=== PATIENT | male | born 1930 | race Caucasian/White ===

== ENCOUNTER → 2018-11-14 | Outpatient (CLI) | payer OTHER ==
[~2018-11-14] VITALS: Ht 182.9 cm; Wt 66.7 kg
[2018-11-14] VITALS (10 sets, daily range): BP systolic 93–133; BP diastolic 36–64
[~2018-11-14] MED LIST: ADULT LOW DOSE81 MG OR; ALTACE5 M1 OR; CARDIZEM CD120 MG PO; CO Q-1010 MG OR; ELIQUIS2.5 MG PO; FISHOIL OR; FLECAINIDE ACET50 M1 PO; IMDUR 30 MG TAB30 M1 PO; MAGOX 400400 MG PO; MULTIVITAMINS OR; NITROGLYCERIN0.4 MG SUBLING; OCUVITE TABLET1 EAC1 PO; TRICOR145 MG OR; VITAMIN E400 UNIT OR; VITAMINC500 OR; ZETIA10 MG OR
[2018-11-14 10:08] LABS: HEMATOCRIT 31.4 % (42.0-52.0); HEMOGLOBIN 10.2 gm/dL (14.0-18.0); MCH 34.1 pg (26.0-34.0); MCHC 32.5 g/dL (28.0-37.0); MCV 104.7 fL (80.0-100.0); MPV 7.3 fl. (7.2-11.1); WBC 39.4 thou/uL (4.0-11.0)
[2018-11-14 10:20] LABS: ANION GAP 9 mmol/L (7-16); BUN 39 mg/dL (7-18); CALCIUM 9.5 mg/dL (8.5-10.1); CHLORIDE 103 mmol/L (98-107); CO2 28 mmol/L (21-32); CREATININE 1.6 mg/dL (0.6-1.3); GLUCOSE 95 mg/dL (70-99); POTASSIUM 4.3 mmol/L (3.5-5.1); SODIUM 140 mmol/L (136-145)
[2018-11-14 10:25] LABS: CHOLESTEROL 226 mg/dL (<200); HDL CHOLESTEROL 43 mg/dL (>40); LDL CHOLESTEROL 167 mg/dL (<100); TC:HDL 5.3 Ratio (Not establshd); TRIGLYCERIDE 80 mg/dL (<150); VLDL 16 mg/dL (<40)
[2018-11-14 10:31] LABS: APTT 25.5 Seconds (25.0-31.3); INR 1.1; PROTIME 10.8 Seconds (9.20-11.50)
[2018-11-14 10:32] LABS: SERUM ASSESSMENT Clear
--- NOTE | 2018-11-14 10:52 | EKG ---
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1930 Requested By: Giancarlo Russell Order Number: [id number] Reading MD: Giancarlo Russell Measurements Intervals [place] Rate: 67 P: MD: QRS: -25 QRSD: 108 T: 64 QT: 433 QTc: 457 Interpretive Statements Atrial flutter 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
--- NOTE | 2018-11-14 12:40 | CARD ---
[address] [address] CARDIAC CATH REPORT Name: YAYA MCPHERSON Room: [place] [address] ADM IN M.R.#: [id number] Admission: 11/14/18 Attend Phys: Giancarlo Russell MD, Discharge: Date of : 12/06/30 Report #: [id number] THIS REPORT FOR: //name// APPROVED REPORT Study performed: 11/14/2018 10:27:46 Patient Details The patient is a 87 year-old male Event Personnel Giancarlo Russell Counter Supervisor, Natalia Ty RN Perl Developer, Skyler Schwartz (R) Monitor, Urban Youssef AMUSEMENT EQUIPMENT OPERATOR Scrub Procedures Performed Art Access - R femoral artery* Coronaries Angiography and Bypass Grafts [id number] [facility] Indication Chest pain Risk Factors Hypercholesterolemia Previous Procedures/Diagnoses Previous CABG Procedure Narrative The patient was brought electively to the Cardiac Catheterization Laboratory and was prepped and draped in a sterile manner. The right femoral was infiltrated with 2% Lidocaine subcutaneous anesthesia. A [place] 6 FR sheath was inserted into the right femoral artery. Coronary angiography was performed using coronary diagnostic catheters. The right coronary system was accessed and visualized with a Diagnostic catheter. The left coronary system was accessed and visualized with a Diagnostic catheter. The left ventricle was accessed and visualized with a Diagnostic catheter. Pre-demployment femoral angiogram was performed . Closure device was deployed with a Fr Mynx 6Fr/7Fr. The patient tolerated the procedure well and there were no complications associated with the procedure. There was no hematoma. Intraoperative Conscious Sedation Sedation start time: 105 Case end Time: 112 [place] [address] CARDIAC CATH REPORT Name: YAYA MCPHERSON Room: [address] IN .R.#: [id number] Admission: 11/14/18 Attend Phys: Giancarlo Russell MD, Discharge: Date of : 12/06/30 Report #: [id number] Fentanyl 25 mcg Versed 1 mg Fluoro Time: 7.3 minutes Dose: 785.48 mGy Contrast Type and Amount: Visipaque 100 ml Coronary Angiography The patient's coronary anatomy is co- dominant. [place] Artery Percent Stenosis #1 priority patent saphenous vein graft to a diagonal branch of the LAD, marginal branch the circumflex in 2 distal posterolateral branches of the distal circumflex #2 atretic but patent CAMPBELL graft to the LAD Diagnostic Cath Left Main 10% distal narrowing LAD 30 Percent proximal and mid vessel narrowing with retrograde filling of a very small CAMPBELL graft Circumflex 100% mid vessel occlusion Right Coronary 30 Percent proximal mid and distal narrowing Left Ventriculography Left Ventriculography was not performed. Hemodynamics The aortic pressure is 101/44 mmHg with a mean of 64 mmHg. Conclusion #1 significant coronary artery disease characterized by the following: A 10% distal left main coronary artery narrowing B 30% proximal and mid LAD narrowing C total occlusion in the midportion of the circumflex D 30% proximal mid and distal right coronary narrowing #2 widely patent saphenous vein graft to a diagonal branch of the LAD marginal branch of the circumflex and two posterolateral branches of the distal circumflex #3 atretic but patent [place] [address] CARDIAC CATH REPORT Name: YAYA MCPHERSON Room: [address] IN .R.#: [id number] Admission: 11/14/18 Attend Phys: Giancarlo Russell MD, Discharge: Date of : 12/06/30 Report #: [id number] #4 normal systemic pressure throughout the study #5 atrial flutter with a moderate ventricular response throughout the study Recommendations Cardiac Risk Reduction Program Aggressive Medical Therapy Diagnostic Cath Approved by: Giancarlo Russell MD Date/Time: 11/14/2018 12:37:06 <ELECTRONICALLY SIGNED> By: Giancarlo Russell MD, FAC 11/14/18 1240 1240 1240Giancarlo Russell MD, FACC /INF
--- NOTE | 2018-11-14 14:57 | 2DMMODE ---
[place] [address] 2 D/M-MODE ECHOCARDIOGRAM Name: YAYA MCPHERSON Room: [facility]#: [id number] Admission: 11/14/18 Attend Phys: Jasmina Smiley Discharge: Date of : 12/06/30 Date of Service: 11/14/18 1456 Report #: [id number] THIS REPORT FOR: //name// APPROVED REPORT Study performed: 11/14/2018 12:54:09 EXAM: Comprehensive 2D, Doppler, and color-flow Echocardiogram Patient Location: Out-Patient Status: routine BSA: 1.87 HR: 69 bpm BP: 113/63 mmHg Rhythm: Atrial Flutter Other Information Study Quality: Good Indications Atrial Fibrillation CAD 2D Dimensions IVSd: 9.06 (7-11mm) LVOT Diam: 20.82 (18-24mm) LVDd: 32.37 mm PWd: 10.29 (7-11mm) Ascending Ao: 30.66 (22-36mm) LVDs: 20.32 (25-40mm) Aortic Root: 31.80 mm Volumes Left Atrial Volume (Systole) LA ESV Index: 40.40 mL/m2 Aortic Valve AoV Peak Chuy.: 1.86 m/s AO Peak Gr.: 13.81 mmHg LVOT Max P.19 mmHg AO Mean Gr.: 7.83 mmHg LVOT Mean P.96 mmHg LVOT Max V: 1.02 m/s AO V2 VTI: 39.60 cm LVOT Mean V: 0.64 m/s JAYLIN (VTI): 1.98 cm2 LVOT V1 VTI: 22.[address] [place]: 1.22 m/s2 AI PHT: 811.63 [place] [address] 2 D/M-MODE ECHOCARDIOGRAM Name: YAYA MCPHERSON Room: [facility].#: [id number] Admission: 11/14/18 Attend Phys: Jasmina Smiley Discharge: Date of : 12/06/30 Date of Service: 11/14/18 1456 Report #: [id number] Mean Gr.: 4.59 mmHg E/A Ratio: 1.08 MV Decel. Time: 178.33 ms MV E Max Chuy.: 1.41 m/s MV PHT: 51.72 ms MVA (PHT): 4.25 cm2 TDI E/Lateral E': 15.67 E/Medial E': 20.14 Medial E' Chuy.: 0.07 m/s Lateral E' Chuy.: 0.09 m/s Pulmonary Valve PV Peak Chuy.: 0.78 m/s PV Peak Gr.: 2.45 mmHg Tricuspid Valve RAP Estimate: 5.00 mmHg TR Peak Gr.: 18.00 mmHg RVSP: 23.00 mmHg PA Pressure: 23.00 mmHg Left Ventricle The left ventricle is normal size. There is normal LV segmental wall motion. There is normal left ventricular wall thickness. Left ventricular systolic function is normal. The left ventricular ejection fraction is within the normal range. LVEF is 60%. Right Ventricle Right ventricle is at the upper limits of normal. The right ventricular systolic function is normal. Atria Left atrium is moderately dilated. Right atrium is at the upper limits of normal. Aortic Valve Bioprosthetic aortic valve is present. Trace aortic regurgitation. No hemodynamically significant valvular aortic stenosis. Mitral Valve Moderate mitral annular calcification. Trace mitral regurgitation. No evidence of mitral valve stenosis. Tricuspid Valve The tricuspid valve is normal in structure. Mild tricuspid regurgitation. No pulmonary hypertension[place] [address] 2 D/M-MODE ECHOCARDIOGRAM Name: YAYA MCPHERSON Room: [facility]#: [id number] Admission: 11/14/18 Attend Phys: Jasmina Smiley Discharge: Date of : 12/06/30 Date of Service: 11/14/18 1456 Report #: [id number] The pulmonary valve is normal in structure. Mild pulmonic regurgitation. Great Vessels The aortic root is normal in size. IVC is normal in size and collapses >50% with inspiration. Pericardium There is no pericardial effusion. <Conclusion> The left ventricle is normal size. There is normal left ventricular wall thickness. Left ventricular systolic function is normal. The left ventricular ejection fraction is within the normal range. Right ventricle is at the upper limits of normal. Left atrium is moderately dilated. Right atrium is at the upper limits of normal. Bioprosthetic aortic valve is present. Trace aortic regurgitation. No hemodynamically significant valvular aortic stenosis. Moderate mitral annular calcification. Trace mitral regurgitation. The tricuspid valve is normal in structure. Mild tricuspid regurgitation. No pulmonary hypertension. The aortic root is normal in size. IVC is normal in size and collapses >50% with inspiration. There is no pericardial effusion. There is normal LV segmental wall motion. LVEF is 60%. <ELECTRONICALLY SIGNED> By: Giancarlo Russell MD, FACC 11/14/18 1456 1456 1456 Giancarlo Russell MD, FACC /INF
== END | disposition home or self-care (01) ==
LOC: M.CL 08:55 → M.TBA-CV 11:39
PROVIDERS: Internal Medicine
DX: I25.10 Atherosclerotic heart disease of native coronary artery without angina pectoris (principal); I08.1 Rheumatic disorders of both mitral and tricuspid valves; I48.92 Unspecified atrial flutter; E78.5 Hyperlipidemia, unspecified; I10 Essential (primary) hypertension; I73.9 Peripheral vascular disease, unspecified; Z85.6 Personal history of leukemia; Z95.1 Presence of aortocoronary bypass graft; Z79.01 Long term (current) use of anticoagulants; Z85.828 Personal history of other malignant neoplasm of skin; Z79.899 Other long term (current) drug therapy; Z98.890 Other specified postprocedural states

== ENCOUNTER → 2018-12-22 | Outpatient (CLI) | payer OTHER ==
[2018-12-22 07:51] VITALS: BP 98/65
[2018-12-22 08:06] LABS: HEMATOCRIT 27.5 % (42.0-52.0); MCH 34.8 pg (26.0-34.0); MCHC 32.9 g/dL (28.0-37.0); MCV 105.7 fL (80.0-100.0); MPV 6.9 fl. (7.2-11.1); RBC 2.6 mil/uL (4.50-6.00)
[2018-12-22 08:10] LABS: WBC 45.9 thou/uL (4.0-11.0)
[2018-12-22 08:16] LABS: CREATININE 1.4 mg/dL (0.6-1.3); POTASSIUM 4.3 mmol/L (3.5-5.1)
[2018-12-22 08:21] LABS: ALBUMIN 4.1 g/dL (3.4-5.0); TOTAL BILIRUBIN 0.4 mg/dL (<0.1-1.0); TOTAL PROTEIN 7.2 g/dL (6.4-8.2)
[2018-12-22 08:27] LABS: APTT 24.7 Seconds (25.0-31.3); INR 1.1; PROTIME 11.4 Seconds (9.20-11.50)
[2018-12-22 09:47] VITALS: BP 105/63
[2018-12-22 09:51] VITALS: BP 96/54
[2018-12-22 10:56] VITALS: BP 121/56
[2018-12-22 12:09] VITALS: BP 137/80
--- NOTE | 2018-12-22 15:08 | EKG ---
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1930 Requested By: Giancarlo Russell Order Number: [id number] Reading MD: Giancarlo Russell Measurements Intervals [place] Rate: 81 P: MS: QRS: -23 QRSD: 106 T: 51 QT: 397 QTc: 461 Interpretive Statements Atrial flutter Borderline left axis deviation ST depr, consider ischemia, inferior leads Borderline ST elevation, anterior leads Compared to ECG 11/14/2018 10:02:38 Possible ischemia now present AV block, advanced (high-grade) no longer present Left bundle-branch block no longer present ST (T wave) deviation still present Electronically Signed On 12-22-2018 15:08:02 CDT by Giancarlo Russell [email or web address] <ELECTRONICALLY SIGNED> By: Giancarlo Russell MD, [facility] 12/22/18 1508 9 9 Giancarlo Russell MD, FAC /EPI
--- NOTE | 2018-12-22 15:09 | EKG ---
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: : 1930 Requested By: Giancarlo Russell Order Number: [id number] Reading MD: Giancarlo Rsusell Measurements Intervals [place] Rate: 66 P: 50 IA: 154 QRS: -19 QRSD: 103 T: 32 QT: 420 QTc: 441 Interpretive Statements Sinus rhythm Borderline left axis deviation Compared to ECG 11/14/2018 10:02:38 Atrial flutter no longer present AV block, advanced (high-grade) no longer present Left bundle-branch block no longer present ST (T wave) deviation no longer present Electronically Signed On 12-22-2018 15:08:57 CDT by Giancarlo Russell [email or web address] <ELECTRONICALLY SIGNED> By: Giancarlo Russell MD, [facility] 12/22/18 1508 1124 1124 Giancarlo Russell MD, [facility] /EPI
--- NOTE | 2018-12-22 15:43 | CARD ---
[address] [address] CARDIAC CATH REPORT Name: YAYA MCPHERSON [facility] [id number] Admission: 12/22/18 Attend Phys: Giancarlo Russell MD, Discharge: Date of : 12/06/30 Report #: [id number] THIS REPORT FOR: //name// CC: Jorge Russell DATE OF SERVICE: 12/22/2018 PROCEDURE: DC cardioversion. TECHNIQUE: The patient was demonstrated to be in atrial flutter with a moderate ventricular response. He previously received flecainide, diltiazem, and Eliquis with sips of water. The patient was sedated with 2 mg of Versed and 25 mcg of fentanyl. After achieving adequate sedation, we proceeded with DC cardioversion delivering 200 joules with the pads located in AP location. This was done x 1 with the patient reverting from atrial flutter to sinus rhythm at a rate of 64. He remained stable and gradually awakened after the sedation. He remained stable in sinus rhythm with a normal state of consciousness. Blood pressure is 100/60 and heart rate was 64. IMPRESSION: Successful DC cardioversion with rhythm reverting from atrial flutter to sinus rhythm and a normal rate. <ELECTRONICALLY SIGNED> By: Giancarlo Russell MD, [facility] 12/22/18 1543 1004 1222John Inge Russell MD, FACC /nt
== END | disposition home or self-care (01) ==
LOC: M.CL 07:34
PROVIDERS: Internal Medicine
DX: I48.92 Unspecified atrial flutter (principal); Z79.01 Long term (current) use of anticoagulants

== ENCOUNTER → 2020-04-08 | Outpatient (CLI) | payer MEDICARE ==
--- NOTE | 2020-04-08 16:06 | CARDNUC ---
[place] [address] CARDIAC NUCLEAR IMAGING REPORT Name: YAYA MCPHERSON Room: [facility]#: [id number] Admission: 04/08/20 Attend Phys: Jasmina Smiley Discharge: Date of : 12/06/30 Date of Service: 04/08/20 1606 Report #: [id number] THIS REPORT FOR: cc: Jorge Viera Herbert E. DO Park,Franco Willams MD ~ APPROVED REPORT Imaging Protocol: Rest Tc-99m/Stress Tc-99m 1 day Study performed: 04/08/2020 14:41:09 Indication: Dyspnea Patient Location: Out-Patient Stress Tech: Danielle Hernandez Stress Nurse: Jesika Grace RN NM Tech:WILLIE Colby Ht: 6 ft 0 in Wt: 141 lbs BSA: 1.84 m2 BMI: 19.12 Medical History Medical History: CAD s/p CABG, HTN Medications: apixaban, flecainide Allergies: No known drug allergies Cardiac Risk Factors: Age, HTN Previous Cardiac Procedures: CABG Exercise History: Indeterminate Resting Data Rest SPECT myocardial perfusion imaging was performed in supine position 30 minutes following the intravenous injection of 9.7 mCi of Tc-99m Sestamibi. Time of rest injection: 1315 Date: 04/08/2020 The images were gated to evaluate regional wall motion and calculate left ventricular ejection fraction. Administration Route: IV Administration Site: Right AC Pharmacologic Stress Pharmacologic stress test was performed by injecting Regadenoson 0.4 mg IV push over 10-15 seconds immediately followed by the intravenous injection of 32.9 mCi of Tc-99m Sestamibi. Time of stress injection: 1440 Date: 04/08/2020 Administration Route: [place] [address] CARDIAC NUCLEAR IMAGING REPORT Name: YAYA MCPHERSON [id number] Admission: 04/08/20 Attend Phys: Jasmina Smiley Discharge: Date of : 12/06/30 Date of Service: 04/08/20 1606 Report #: [id number] Administration Site: Right AC Gated Stress SPECT was performed 40 minutes after stress injection. The images were gated to evaluate regional wall motion and calculate left ventricular ejection fraction. Stress only was performed in the Supine position. Stress Test Details Stress Test: Pharmacologic stress testing performed using 0.4 mg of regadenoson per 5 mL given IV over 10 seconds. Reason for pharmacologic stress test: physical limitation. HR Max Heart Rate (APMHR): 131 bpm Resting HR: 72 bpm Target HR (85% APMHR): 111 bpm Max HR Achieved: 83 bpm % of APMHR: 63 Recovery HR: 83 bpm BP Resting BP: 110/51 mmHg Max BP: 102/36 mmHg Recovery BP: 121/48 mmHg ECG Resting ECG: Sinus Rhythm Stress ECG: Sinus Rhythm ST Change: Non-ischemic Clinical Reason for Termination: Completed protocol Nurse Comments pt to weak to walk on treadmill Study Quality Study: Good Study Data Post stress, the left ventricular ejection was 73%.. Perfusion Normal left ventricular perfusion. Normal perfusion on both the stress and rest images. Wall Motion Normal left [place] [address] CARDIAC NUCLEAR IMAGING REPORT Name: YAYA MCPHERSON Room: [facility]#: [id number] Admission: 04/08/20 Attend Phys: Jasmina Smiley Discharge: Date of : 12/06/30 Date of Service: 04/08/201605 Report #: [id number] Nuclear Conclusion ECG Findings: negative for ischemia Clinical Findings: non-diagnostic Nuclear Findings: negative for ischemia Exercise Capacity: not assessed Left Ventricular Function: normal Risk Study: low This study is of low probability for inducible ischemia or prior infarct. Normal global and segmental LV systolic function. <ELECTRONICALLY SIGNED> By: Franco Toledo MD 04/08/20 1606 05 1606 Franco Toledo MD /INF
== END ==
LOC: M.NUC 03-25 09:30
PROVIDERS: ATTEND Internal Medicine
DX: I25.10 Atherosclerotic heart disease of native coronary artery without angina pectoris (principal); R06.09 Other forms of dyspnea; Z95.1 Presence of aortocoronary bypass graft